=== PATIENT | male | born 1970 | race Two or more races ===

== ENCOUNTER 2019-11-25 18:40 | Emergency (ER) | payer SELFPAY ==
[~2019-11-25] VITALS: Ht 165.1 cm; Wt 124.6 kg
[2019-11-25 21:50] VITALS: BP 113/69
--- NOTE | 2019-11-25 21:51 | RAD ---
Exam: Chest one view INDICATION: Covid positive, increasing short of air TECHNIQUE: Frontal view of the chest Comparisons: None FINDINGS: The cardiomediastinal silhouette and pulmonary vessels are within normal limits. Patchy bilateral airspace disease. No pleural effusion. IMPRESSION: Patchy bilateral airspace disease, consistent with history of Covid Electronically signed by: Shazia Meyer MD (11/25/2019 9:48 PM) [id number]
[2019-11-25] MEDS ORDERED: METH4TAB2 PO (22:52)
[2019-11-25] MEDS ORDERED: ALBU2.5V8 IH (22:52)
[2019-11-25] MEDS ORDERED: AZIT250T6 PO (22:52)
--- NOTE | 2019-11-25 22:53 | PHYS DOC ---
General Adult EDM: Chief Complaint: COUGH HPI: HPI: Patient is a 48 year old male who presents to the emergency department with significant other, patient is Telugu-speaking only his Estefany translates for him. The patient's reports that he tested positive for COVID-19 on November [id number]. The patient is experiencing increased shortness of breath with exertion and pain with cough and deep breath. He denies any chest pain, palpitations, abdominal pain, nausea, vomiting, or diarrhea. His states that he has a history of high blood pressure he has not been taking his medication. Review of Systems: Review of Systems: Constitutional: Reports fever, chills, body aches Eyes: Denies change in visual acuity. [] HENT: Denies sore throat, reports nasal congestion Respiratory: See HPI Cardiovascular: Denies palpitations or edema; reports pain in chest with cough and deep breath GI: Denies abdominal pain, nausea, vomiting, or diarrhea. [] Musculoskeletal: Denies back pain or joint pain. [] Integument: Denies rash. [] Neurologic: Denies headache, focal weakness or sensory changes. [] Psychiatric: Denies depression or anxiety. [] Complete ROS is negative unless otherwise stated in the HPI. Heart Score: Risk Factors: Risk Factors: DM, Current or recent (<one month) smoker, HTN, HLP, family history of CAD, obesity. Risk Scores: Score 0 - 3: 2.5% MACE over next 6 weeks - Discharge Home Score 4 - 6: 20.3% MACE over next 6 weeks - Admit for Clinical Observation Score 7 - 10: 72.7% MACE over next 6 weeks - Early Invasive Strategies Physical Exam: PE: Constitutional: Well developed, well nourished, no acute distress, ill- appearing, morbidly obese HENT: Normocephalic, atraumatic, bilateral external ears normal, nose normal. [] Eyes: PERRLA, EOMI, conjunctiva normal, no discharge. [] Neck: Normal range of motion, no stridor. [] Cardiovascular:Heart rate regular rhythm Lungs & Thorax: Respirations even and unlabored, no retractions, no respiratory distress, lungs clear in upper patrick, diminished in posterior bilateral bases Abdomen: soft, no tenderness Skin: Warm, dry, no erythema, no rash. [] Extremities: No cyanosis, ROM intact, no edema. [] Neurologic: Alert and oriented X 3, no focal deficits noted. [] Psychologic: Affect normal, judgement normal, mood normal. [] EKG: EKG: [] Radiology/Procedures: Radiology/Procedures: PROCEDURE: CHEST AP ONLY Exam: Chest one view INDICATION: Covid positive, increasing short of air TECHNIQUE: Frontal view of the chest Comparisons: None FINDINGS: The cardiomediastinal silhouette and pulmonary vessels are within normal limits. Patchy bilateral airspace disease. No pleural effusion. IMPRESSION: Patchy bilateral airspace disease, consistent with history of Covid [] Course & Med Decision Making: Course & Med Decision Making Pertinent Labs and Imaging studies reviewed. (See chart for details) 48-year-old male presented emergency department with complaints of increased shortness of breath after recent COVID-19 diagnosis. Patient's translated for the patient. Chest x-ray was consistent with COVID-19 diagnosis patient's vital signs in the emergency department were stable, his breathing was unlabored. Prescription was written for Z-Luis Antonio, Medrol Dosepak, and an albuterol inhaler. I provided the patient with COVID-19 instructions encouraged the patient and his to return to the emergency room if symptoms worsened or shortness of breath or breathing became more labored. Patient and his verbalized an understanding of home care, medications, follow-up, and return to ED instructions and was in agreement with the plan of care. COVID-19 CRITERIA: The patient was evaluated during the global COVID-19 pandemic, and that diagnosis was suspected/considered upon their initial presentation. Their evaluation, treatment and testing was consistent with current guidelines for patients who present with complaints or symptoms that may be related to COVID-19. [] Dragon Disclaimer: Dragon Disclaimer: This electronic medical record was generated, in whole or in part, using a voice recognition dictation system. Departure Departure Impression: Primary Impression: Pneumonia due to 2019 novel coronavirus Disposition: 01 DC HOME SELF CARE/HOMELESS Condition: STABLE Referrals: NO PCP (PCP) Patient Instructions: Pneumonia, Adult, [id number] Additional Instructions: Fill the prescriptions and use them as directed. Return to the emergency room if your shortness of breath increases or symptoms worsen. Definicin Se le realiz la prueba de deteccin del COVID-19 o se le diagnostic dicha enfermedad. Es bossman infeccin ocasionada por un nuevo tipo de coronavirus. En la mayora de los casos, el COVID-19 provoca sntomas similares a los del resfriado. En algunas personas, puede ocasionar sntomas ms graves, jossy problemas respiratorios. No existe un tratamiento para el virus COVID-19. El cuerpo elimina la infeccin con el tiempo. El cuidado personal ayuda a aliviar el malestar. Pasos que debe seguir 1. Cuidados personales Descanse cuando sea necesario. Los hbitos saludables pueden ayudarlo a sentirse mejor. Algunas medidas para lograr cambios incluyen lo siguiente: - Elija alimentos saludables, jossy frutas y verduras. Pilar abundante cantidad de agua jefe todo el da. - Duerma rebeca por la noche. - Si fuma, intente no hacerlo. Coolin ayudar a mejorar la respiracin. - Evite el alcohol. 2. Mantenga sanos a los dems El virus puede contagiarse a otras personas. Cada vez que estornuda o tose, se liberan gotitas. Las gotitas pueden entrar en la boca, la nariz o los ojos de las personas que se encuentran cerca de usted y ocasionar la infeccin. Para reducir las probabilidades de contagiar el virus COVID-19 a otros, tenga en cuenta lo siguiente: - Qudese en casa el tiempo que el mdico se lo indique. Es posible que deba quedarse en casa hasta que la enfermedad desaparezca. Salga nicamente para recibir atencin mdica o en kendrick de urgencia. - Evite las reas pblicas, los eventos o el transporte pblico. No reanude las actividades laborales o escolares hasta que el mdico lo autorice. - Llame previamente si necesita asistir a un centro mdico. Avise que es posible que haya contrado COVID-19. Coolin ayudar a que le indiquen adonde debe dirigirse. Shan pueden pedirle que use bossmna mscara facial cuando vaya al consultorio. Si llama a los servicios de asistencia mdica de urgencias, avseles que es posible que haya contrado COVID-19. Mientras est en casa: - Evite el contacto directo con otras personas. Mantngase a bossman distancia aproximada de 2 metros. Si es posible, pasen la mayor parte del tiempo en vogel separadas. - Use bossman mscara facial si estar en contacto directo con otras personas, por ejemplo, si compartir bossman habitacin o un vehculo. - Pida a alguien que limpie las superficies comunes de la casa. Limpie picaportes, mesadas y lavamanos con limpiadores domsticos todos los degroot. - Al toser o estornudar, cbrase con un pauelo de papel. Despus de usarlo, deschelo de inmediato. Si no tiene un pauelo de papel, tosa o estornude en el pliegue del codo. - Lvese las lore con frecuencia. Lvese las lore despus de estornudar o tos er. Lvese con agua y jabn jefe, al menos, 20 segundos. Si no dispone de agua y jabn, use un limpiador de lore a base de alcohol. - No cocine para otros. Evite compartir objetos personales, jossy tenedores, cucharas o cepillos de dientes. - Mientras est enfermo, evite el contacto directo con las mascotas. No hay indicios de si el virus se transmite a las mascotas. Esta es bossman medida de seguridad que debe tenerse en cuenta hasta que se sepa ms acerca de nicole virus. El aislamiento puede ser frustrante. La interaccin social puede ayudar. Mantngase en contacto con amigos y familiares por telfono u otros medios tecnolgicos. Puede interactuar con otras personas en el hogar, tato mantenga bossman distancia beckham de aproximadamente 2 metros. Seguimiento Las pruebas para confirmar la presencia del COVID-19 pueden demorar algunos degroot. Es posible que deba seguir los pasos mencionados anteriormente hasta que estn los resultados de las pruebas. Lo llamarn del consultorio mdico para saber si manzano habido algn cambio en soler lorena. Tambin le avisarn cuando pueda volver a estar cerca de otras personas. Problemas a los que debe estar atento Comunquese con el mdico si no se recupera segn lo previsto o si tiene problemas jossy los siguientes: - Dificultad para respirar - Dolor de pecho - Empeoramiento de los sntomas Si jo que tiene bossman urgencia, llame a los servicios de asistencia mdica de urgencias de inmediato. As taken from [facility] [place] [facility] Azithromycin (AZITHROMYCIN TABLET) 250 Mg Tablet 1 PKG PO UD for 5 Days, #6 TAB 0 Refills 2 the first day followed by 1 for days 2-5 Prov: TANESHA MADDOX [employer]UME WATCHER 11/25/19 Methylprednisolone (MEDROL) 4 Mg Tab.ds.pk 1 PKG PO UD for 6 Days, #1 PKG 0 Refills Prov: TANESHA MADDOX [employer]UME WATCHER 11/25/19 Albuterol Sulfate (Proair Hfa) 8.5 Gm Hfa.aer.ad 2 PUFF IH PRN Q4-6HRS PRN for wheezing for 21 Days, #1 INHALER 0 Refills Prov: TANESHA MADDOX [employer]UME WATCHER 11/25/19 COVID-19 Assessment: COVID-19 Patient Risks: Age 65 or older: No Sign of co-morbidity: Yes Exp to person + for COVID: Yes Exp to PUI: Yes Travel from affected area: No Lower respiratory symptoms: Yes Fever: Yes Comments: Positive COVID-19 test on 11/22/2019 PPE Use: Full PPE with N95 mask or PAPR: Yes TANESHA MADDOX APRN Nov 25, 2019 22:53
== END 2019-11-25 23:22 | disposition home or self-care (01) ==
LOC: ER 18:40
DX: U07.1 COVID-19 (principal); J12.89 Other viral pneumonia; R05 Cough; R50.9 Fever, unspecified; R06.02 Shortness of breath
CPT/HCPCS: 71045; 99283